=== PATIENT | male | born 1980 | race Native Hawaiian/Other Pacific Islander ===

== ENCOUNTER 2019-10-04 08:26 | Outpatient (CLI) | payer OTHER | END 2019-10-04 19:37 | disposition home or self-care (01) | LOC: NM 08:26 | DX: R10.9 Unspecified abdominal pain (principal); I10 Essential (primary) hypertension | CPT/HCPCS: A9537 ==

== ENCOUNTER 2020-07-23 08:19 | Outpatient (CLI) | payer OTHER ==
[~2020-07-23] VITALS: Ht 170.2 cm; Wt 96.2 kg
== END 2020-07-23 19:01 | disposition home or self-care (01) ==
LOC: NM 08:19
PROVIDERS: ATTEND Nuclear Medicine Nuclear Cardiology
DX: R07.89 Other chest pain (principal); R00.2 Palpitations; R06.09 Other forms of dyspnea; I47.1 Supraventricular tachycardia
CPT/HCPCS: A9500; J2785

== ENCOUNTER 2020-09-07 09:04 | Outpatient (CLI) | payer OTHER | END 2020-09-07 21:07 | disposition home or self-care (01) | LOC: US 09:04 → RESP 09:04 | PROVIDERS: ATTEND Nuclear Medicine Nuclear Cardiology | DX: R06.09 Other forms of dyspnea (principal); R00.2 Palpitations; R07.89 Other chest pain ==

== ENCOUNTER 2021-03-23 11:40 | Outpatient (CLI) | payer OTHER | END 2021-03-23 21:36 | disposition home or self-care (01) | LOC: US 11:40 | PROVIDERS: ATTEND Nuclear Medicine Nuclear Cardiology | DX: I65.29 Occlusion and stenosis of unspecified carotid artery (principal) ==